=== PATIENT | female | born 1955 ===

== ENCOUNTER 2021-11-07 17:04 | Emergency (ER) | payer OTHER ==
[~2021-11-07] VITALS: Ht 167.6 cm; Wt 86.2 kg
[2021-11-07] MEDS ORDERED: AMLODIPINE-OLM1 EAC1 PO (17:18)
== END 2021-11-08 01:45 | disposition home or self-care (01) ==
LOC: ER 17:04
DX: A04.9 Bacterial intestinal infection, unspecified (principal); N39.0 Urinary tract infection, site not specified; I10 Essential (primary) hypertension